=== PATIENT | female | born 1940 | race Caucasian/White ===

== ENCOUNTER 2016-04-20 17:17 | Inpatient (IN) | payer OTHER ==
[~2016-04-20] VITALS: Ht 157.5 cm; Wt 73.8 kg
[~2016-04-20 17:17] MED LIST: ASPIR 8181 MG PO; ATENOLOL25 MG PO; ATENOLOL50 MG PO; ATORVASTATIN CA20 MG PO; CALCIUM + D 601 EACH PO; FAMOTIDINE20 MG PO; GLIPIZIDE XL10 MG PO; GLIPIZIDE10 MG PO; Glucophage PO; HYDROCHLOROTH12.5 MG PO; JANUVIA100 MG PO; METFORMIN HCL500 M1 PO; PLAVIX75 MG PO; PRILOSEC20 MG PO; VITAMIN D32000 UNI1 PO; ZOCOR20 MG PO; ZOCOR40 MG PO
[2016-04-20 17:53] LABS: POINT-OF-CARE METER ID UU13113702
[2016-04-20 17:54] LABS: HEMATOCRIT 36.5 % (36.0-46.0); MCH 32.5 PG (29.0-34.0); MCHC 34.2 G/DL (30.0-36.0); MCV 94.8 FL (83-99); MEAN PLAT.VOLUME 10.9 uM^3 (9.5-12.4); PLATELET COUNT 69 K/uL (156-360); RBC DIS.WIDTH-CV 12.9 % (11.8-14.6); RBC DIS.WIDTH-SD 42.8 % (39-53); RED BLOOD COUNT 3.85 M/uL (3.80-5.20); WHITE BLOOD COUNT 4.3 K/uL (4.1-10.2)
[2016-04-20 18:07] LABS: CHLORIDE 108 mEq/L (99-109); POTASSIUM 3.7 mEq/L (3.7-5.4); SODIUM 140 mEq/L (136-147)
[2016-04-20 18:09] LABS: GLUCOSE 143 mg/dL (70-99)
[2016-04-20 18:11] LABS: ANION GAP 11 MEQ/L (2-14)
[2016-04-20 18:13] LABS: GFR ESTIMATE (CALCULATED) > 59 mL/min/
[2016-04-20 18:14] LABS: UREA NITROGEN (BUN) 14 mg/dL (9-23)
[2016-04-20 19:14] LABS: ADD MIUA? NO; BILIRUBIN NEGATIVE; BLOOD NEGATIVE; COLOR YELLOW ((YELLOW)); GLUCOSE (STRIP) NEGATIVE; KETONES NEGATIVE; LEUKOCYTES NEGATIVE; NITRITE NEGATIVE; PH, URINE 5.5 (5-8); PROTEIN (STRIP) NEGATIVE; SPECIFIC GRAVITY 1.017 (1.000-1.030); UCUL ADDED? NO
[2016-04-20] MEDS ORDERED: GABAPENTIN300 MG PO ×2 (21:44)
[2016-04-20] MEDS ORDERED: CYANOCOBALAM1000 MCG PO (21:44)
[2016-04-20] MEDS ORDERED: LOSARTAN POTASS50 MG PO (21:44)
[2016-04-20 22:18] LABS: TROP-I INTERPRETATION NEGATIVE; TROPONIN-I 0.01 ng/mL (0.0-0.30)
[2016-04-20 22:51] LABS: HDL CHOLESTEROL 42 MG/DL (Desirable>=50); LDL CHOLESTEROL 58 mg/dL (Desirable<100); NON-HDL CHOLESTEROL 81 mg/dL (Desirable<160); TOTAL CHOLESTEROL 123 mg/dL (Desirable<200); TRIGLYCERIDES 114 MG/DL (Normal: <150)
[2016-04-20 22:52] VITALS: BP 178/83
[2016-04-20 23:11] LABS: POINT-OF-CARE METER ID UU13113831
[2016-04-21 04:22] VITALS: BP 157/70
[2016-04-21 04:27] LABS: MCH 32.3 PG (29.0-34.0); MCHC 33.9 G/DL (30.0-36.0); MCV 95.1 FL (83-99); MEAN PLAT.VOLUME 10.8 uM^3 (9.5-12.4); PLATELET COUNT 57 K/uL (156-360); RED BLOOD COUNT 3.47 M/uL (3.80-5.20); WHITE BLOOD COUNT 3.5 K/uL (4.1-10.2)
[2016-04-21 04:30] LABS: CHLORIDE 112 mEq/L (99-109); POTASSIUM 3.6 mEq/L (3.7-5.4); SODIUM 143 mEq/L (136-147)
[2016-04-21 04:33] LABS: GLUCOSE 140 mg/dL (70-99)
[2016-04-21 04:34] LABS: ANION GAP 10 MEQ/L (2-14)
[2016-04-21 04:35] LABS: TOTAL BILIRUBIN 0.9 mg/dL (0.0-1.0)
[2016-04-21 04:36] LABS: ALKALINE PHOSPHATASE 131 IU/L (3-129); GFR ESTIMATE (CALCULATED) > 59 mL/min/
[2016-04-21 04:37] LABS: UREA NITROGEN (BUN) 12 mg/dL (9-23)
[2016-04-21 04:44] LABS: TROP-I INTERPRETATION NEGATIVE; TROPONIN-I 0.02 ng/mL (0.0-0.30)
[2016-04-21 07:09] LABS: POINT-OF-CARE METER ID UU13113700
[2016-04-21 08:30] VITALS: BP 179/80
[2016-04-21 10:43] LABS: TROP-I INTERPRETATION NEGATIVE; TROPONIN-I < 0.01 ng/mL (0.0-0.30)
[2016-04-21 12:41] VITALS: BP 145/72
[2016-04-21 16:53] VITALS: BP 162/75
[2016-04-21 17:42] LABS: POINT-OF-CARE METER ID UU13113700
[2016-04-21 22:00] LABS: POINT-OF-CARE METER ID UU13113700
[2016-04-22 00:48] VITALS: BP 158/80
[2016-04-22 04:00] VITALS: BP 154/82
[2016-04-22 04:13] LABS: POINT-OF-CARE METER ID UU14162513
[2016-04-22 07:01] LABS: HEMATOCRIT 35.1 % (36.0-46.0); MCH 32.2 PG (29.0-34.0); MCHC 33.9 G/DL (30.0-36.0); MCV 95.1 FL (83-99); MEAN PLAT.VOLUME 11.4 uM^3 (9.5-12.4); PLATELET COUNT 59 K/uL (156-360); RBC DIS.WIDTH-CV 13.3 % (11.8-14.6); RBC DIS.WIDTH-SD 46.1 % (39-53); RED BLOOD COUNT 3.69 M/uL (3.80-5.20)
[2016-04-22 07:26] LABS: ANION GAP 9 MEQ/L (2-14); CHLORIDE 104 MEQ/L (99-109); GFR ESTIMATE (CALCULATED) > 59 mL/min/; GLUCOSE 140 mg/dL (70-99); POTASSIUM 3.9 MEQ/L (3.7-5.4); SAMPLE HEMOLYSIS CHECK 0; SAMPLE ICTERIC CHECK 0; SAMPLE LIPEMIA CHECK 0; SODIUM 137 MEQ/L (136-147); UREA NITROGEN (BUN) 13 mg/dL (9-23)
[2016-04-22 08:00] VITALS: BP 161/89
[2016-04-22] MEDS ORDERED: NITROSTAT0.4 MG SL (08:30)
[2016-04-22 18:42] LABS: Estimated Average Glucose 166 mg/dL (70-123); HEMOGLOBIN A1c (GLYCOHEMOGLOB) 7.4 % HGB (Below 5.7)
== END 2016-04-22 11:15 | disposition home or self-care (01) | DRG 69 ==
LOC: EME 17:17 → EDOF 20:54 → 5WEST 22:33
PROVIDERS: Emergency Medicine; Hospitalist; Internal Medicine; Nurse Practitioner Adult Health
DX: G45.9 Transient cerebral ischemic attack, unspecified (principal); D69.6 Thrombocytopenia, unspecified; G31.89 Other specified degenerative diseases of nervous system; I10 Essential (primary) hypertension; E78.00 Pure hypercholesterolemia, unspecified; E11.9 Type 2 diabetes mellitus without complications; I44.7 Left bundle-branch block, unspecified; Z79.84 Long term (current) use of oral hypoglycemic drugs; I69.398 Other sequelae of cerebral infarction; R51 Headache; R47.9 Unspecified speech disturbances
CPT/HCPCS: 70450; 70551; 71020; 76705; 80048; 80053; 80061; 81003; 82948; 83036; 84484; 85027; 93005; 93880; 99281; 99285; G0378; J1815; J7030

== ENCOUNTER 2017-09-01 10:35 | Emergency (ER) | payer OTHER ==
[~2017-09-01] VITALS: Ht 157.5 cm; Wt 72.5 kg
[~2017-09-01 10:35] MED LIST changes: +CYANOCOBALAM1000 MCG PO; +GABAPENTIN300 MG PO; +LOSARTAN POTASS50 MG PO; +NITROSTAT0.4 MG SL
[2017-09-01 10:54] LABS: BASOPHIL (%) 0.9 % (0-1); EOSINOPHIL COUNT 0.2 K/uL (0-0.3); HEMATOCRIT 35.5 % (36.0-46.0); HEMOGLOBIN 12.8 G/DL (11.9-15.5); IMMATURE GRANULOCYTE (%) 0.5 % (0.0-0.7); LYMPHOCYTE (%) 28.1 % (15-42); LYMPHOCYTE COUNT 1.2 K/uL (1.0-2.8); MCHC 36.1 G/DL (30.0-36.0); MCV 94.2 FL (83-99); MONOCYTE (%) 7.3 % (3-12); MONOCYTE COUNT 0.3 K/uL (0-0.8); NEUTROPHIL (%) 59.2 % (45-76); NEUTROPHIL COUNT 2.5 K/uL (1.8-6.4); PLATELET COUNT 67 K/uL (156-360); RBC DIS.WIDTH-CV 12.6 % (11.8-14.6); RBC DIS.WIDTH-SD 43.6 % (39-53); RED BLOOD COUNT 3.77 M/uL (3.80-5.20); WHITE BLOOD COUNT 4.3 K/uL (4.1-10.2)
[2017-09-01 10:55] LABS: CARBON DIOXIDE (BICARBONATE) 29.9 MEQ/L (20-31)
[2017-09-01 11:03] LABS: ALBUMIN 3.7 g/dL (3.2-4.8); CHLORIDE 99 mEq/L (99-109); POTASSIUM 3.7 mEq/L (3.7-5.4); SODIUM 136 mEq/L (136-147)
[2017-09-01 11:07] LABS: TOTAL BILIRUBIN 1.1 mg/dL (0.0-1.0)
[2017-09-01 11:08] LABS: GLUCOSE 488 mg/dL (70-99)
[2017-09-01 11:09] LABS: ALKALINE PHOSPHATASE 182 IU/L (3-129); CREATININE 1.6 mg/dL (0.6-1.3); GFR ESTIMATE (CALCULATED) 33 mL/min/
[2017-09-01 11:10] LABS: UREA NITROGEN (BUN) 22 mg/dL (9-23)
[2017-09-01 11:11] LABS: AST (GOT) 30 IU/L (2-34)
[2017-09-01 11:12] LABS: ALT (GPT) 47 IU/L (3-49)
[2017-09-01 11:15] LABS: TROP-I INTERPRETATION NEGATIVE; TROPONIN-I < 0.01 ng/mL (0.0-0.30)
[2017-09-01 13:34] LABS: APPEARANCE SL.HAZY ((CLEAR)); BILIRUBIN NEGATIVE; BLOOD NEGATIVE; COLOR YELLOW ((YELLOW)); GLUCOSE (STRIP) >=500; KETONES NEGATIVE; LEUKOCYTES SMALL; NITRITE NEGATIVE; PROTEIN (STRIP) NEGATIVE; SPECIFIC GRAVITY 1.021 (1.000-1.030); UROBILINOGEN 0.2 MG/DL (0.2-1.0)
[2017-09-01 13:40] LABS: BACTERIA NONE SEEN /HPF; EPITHELIAL CELLS 2+ /HPF; HYALINE CASTS 0-5 /LPF; MUCUS TRACE /LPF; RED BLOOD CELLS 0-5 /HPF (0-5); UCUL ADDED? YES
[2017-09-01] MEDS ORDERED: CIPRO XR 500 M500 M1 PO (14:12)
[2017-09-01 14:27] VITALS: BP 141/66
== END 2017-09-01 14:28 | disposition home or self-care (01) ==
LOC: EME 10:35
PROVIDERS: Emergency Medicine
DX: E11.65 Type 2 diabetes mellitus with hyperglycemia (principal); N39.0 Urinary tract infection, site not specified; Z79.84 Long term (current) use of oral hypoglycemic drugs; E78.5 Hyperlipidemia, unspecified; I10 Essential (primary) hypertension; Z86.73 Personal history of transient ischemic attack (TIA), and cerebral infarction without residual deficits
CPT/HCPCS: 71045; 80053; 81003; 82010; 82803; 82948; 84484; 85025; 87086; 93005; 99281; 99285; J7030